=== PATIENT | male | born 1990 | race Hispanic/Latino ===

== ENCOUNTER 2017-07-06 23:56 | Emergency (ER) | payer SELFPAY ==
[2017-07-07] MEDS ORDERED: LIDOCAINE HCL 1% 20 ML VIAL ONE (00:24)
== END 2017-07-07 02:25 | disposition home or self-care (01) ==
LOC: EDH 23:56
DX: S61.212A Laceration without foreign body of right middle finger without damage to nail, initial encounter (principal); Z88.1 Allergy status to other antibiotic agents; Z72.0 Tobacco use; W25.XXXA Contact with sharp glass, initial encounter; Y93.89 Activity, other specified; Y92.89 Other specified places as the place of occurrence of the external cause; Y99.8 Other external cause status
CPT/HCPCS: 12001; 73130; 90471